=== PATIENT | female | born 1970 | race Caucasian/White ===

== ENCOUNTER 2019-07-24 12:30 | Emergency (ER) | payer OTHER ==
[2019-07-24] MEDS ORDERED: SODIUM CHLORIDE 0.9% 1,000 ML IV STA (13:09)
[2019-07-24] MEDS ORDERED: MORPHINE SULFATE 4 MG/ML SYRINGE IV STA (13:10)
[2019-07-24 13:34] LABS: Basophils # (A) 0.1 k/uL (0-0.2); Basophils % (A) 1 %; Eosinophils # (A) 0.1 k/uL (0-0.7); Eosinophils % (A) 1 %; HCT 41.9 % (34.0-46.0); Lymphocytes # (A) 2.8 k/uL (1.0-4.8); Lymphocytes % (A) 36 %; MCH 30.1 pg (25.0-35.0); MCHC 33.3 g/dL (31.0-37.0); MCV 90.3 fL (80.0-100.0); Monocytes # (A) 0.3 k/uL (0-1.0); Monocytes % (A) 4 %; Neutrophils # (A) 4.3 k/uL (1.3-7.7); Neutrophils % (A) 57 %; Platelet Count 346 k/uL (150-450); RBC 4.64 m/uL (3.80-5.40); RDW 13.1 % (11.5-15.5); WBC 7.6 k/uL (3.8-10.6)
[2019-07-24] MEDS ORDERED: MECLIZINE 12.5 MG TAB PO STA (13:39)
--- NOTE | 2019-07-24 13:39 | CT ---
EXAMINATION TYPE: CT brain osiel matos DATE OF EXAM: 07/24/2019 COMPARISON: NONE HISTORY: Dizziness fall, head and neck pain CT DLP: 1417.9 mGycm. Automated Exposure Control for Dose Reduction was Utilized. TECHNIQUE: CT scan of the head and cervical spine are performed without contrast. FINDINGS: There is no acute intracranial hemorrhage, mass effect, or midline shift identified. The ventricles and sulci are within normal limits in size. 1.0 cm sphenoid mucosal retention cyst is se en. The globes are intact and the remaining visualized sinuses are clear. Cervical spine is visualized in its entirety from C1 through upper thoracic levels and demonstrates s atisfactory alignment without evidence of acute fracture or dislocation. Prevertebral soft tissue ap pears within normal limits. There is a lucent lesion of C7 measuring 9 x 8 mm. This has questionable features of a hemangioma on sagittal image 27 (line sign). Multiple other lucent areas appear as prom inent veins in other cervical vertebral bodies. The C1-C2 articulation is unremarkable. There is rev ersal of the usual cervical lordosis. Congenital posterior elements of C1. Patchy groundglass opaciti es in the lung apices may relate to atelectasis or fluid overload. Minimal multilevel degenerative di sc disease. IMPRESSION: 1. There is no acute fracture or dislocation evident in the cervical spine. 2. No acute intracranial hemorrhage, mass effect, or midline shift is seen. 3. Lucent lesion of C7 has possible features of a hemangioma. MRI of the cervical spine could ensure no abnormal bone marrow replacing process. 4. Minimal multilevel degenerative disc disease of the cervical spine and reversal usual cervical amari dosis that may relate to muscular strain/spasm or patient positioning.
[2019-07-24 13:48] VITALS: RESP 18; TEMP 98.6
[2019-07-24 13:50] LABS: ALT 18 U/L (9-52); AST 21 U/L (14-36); African American GFR (CKD) >90 (>60 ml/min/1.73 sqM); Albumin 4.4 g/dL (3.5-5.0); Alkaline Phosphatase 74 U/L (38-126); Anion Gap 10 mmol/L; Blood Urea Nitrogen 22 mg/dL (7-17); Calcium 9.5 mg/dL (8.4-10.2); Carbon Dioxide 25 mmol/L (22-30); Chloride 108 mmol/L (98-107); Glucose 102 mg/dL (74-99); Magnesium 1.9 mg/dL (1.6-2.3); Non-African American GFR(CKD) >90 (>60 ml/min/1.73 sqM); Potassium 4.5 mmol/L (3.5-5.1); Sodium 143 mmol/L (137-145); Total Bilirubin 0.3 mg/dL (0.2-1.3); Total Protein 7.4 g/dL (6.3-8.2)
[2019-07-24 13:55] LABS: INR 0.9 (<1.2); Partial Thromboplastin Time 24.5 sec (22.0-30.0); Prothrombin Time 9.5 sec (9.0-12.0)
[2019-07-24 13:58] LABS: D-Dimer 0.75 mg/L FEU (<0.60)
[2019-07-24 14:46] VITALS: BP 117/80; PULSE 77
[2019-07-24 14:52] LABS: Appearance,Urine Clear (Clear); Bilirubin,Urine Negative (Negative); Blood,Urine Negative (Negative); Color,Urine Light Yellow; Glucose,Urine (UA) Negative (Negative); Ketones,Urine Negative (Negative); Leukocyte Esterase,Urine Small (Negative); Mucus,Urine Rare /hpf; Nitrite,Urine Negative (Negative); Protein,Urine Negative (Negative); RBC,Urine 2 /hpf (0-5); Squamous Epithelial Cell,Urine <1 /hpf (0-4); Urobilinogen,Urine <2.0 mg/dL (<2.0); WBC,Urine <1 /hpf (0-5)
[2019-07-24 14:56] LABS: Specific Gravity,Urine 1.047 (1.001-1.035)
--- NOTE | 2019-07-24 15:09 | ED ---
General Adult HPI - General Chief complaint: Dizziness Stated complaint: dizziness Time Seen by Provider: 07/24/19 12:51 Source: RN/MD, RN notes reviewed, old records reviewed Mode of arrival: EMS Limitations: no limitations - History of Present Illness Initial comments: 48-year-old female patient presents to ED for multiple complaints. Patient reports that she has history of multilevel lumbar fusion for which she reportedly has some hardware loosening is supposed to have a revision surgery in approximately 8 days. Today she is due to have imaging done including lumbar spine MRI. Patient also reports that she is supposed to have a MRI done of her abdomen due to a reported history of a 4 cm aortic aneurysm. Patient reports that since Tuesday she has had dizziness, feeling as if the room is spinning about her. Also some waxing and waning left parasternal chest pressure. Denies a chance of being . Denies any abdominal pain. Denies any other complaints. Systemic: Pt denies fatigue, fever/chills, rash. Pt denies weakness, night sw eats, weight loss. Neuro: Pt denies headache, visual disturbances, syncope or pre-syncope. HEENT: Pt denies ocular discharge or irritation, otalgia, rhinorrhea, pharyngitis or notable lymphadenopathy. Cardiopulmonary: Pt denies SOB, heart palpitations, dyspnea on exertion. Abdominal/GI: Pt denies abdominal pain, n/v/d. : Pt denies dysuria, burning w/ urination, frequency/urgency. Denies new onset urinary or bowel incontinence. MSK: Pt denies myalgia, loss of strength or function in extremities. Neuro: Pt denies new onset weakness, paresthesias. - Related Data Home Medications Medication Instructions Recorded Confirmed Cyclobenzaprine [Flexeril] 10 mg PO TID PRN 01/19/16 07/24/19 Ergocalciferol [Vitamin D2] 50,000 unit PO Q7D 02/25/16 07/24/19 Multivitamins, Thera [Multivitamin] 1 tab PO DAILY 02/25/16 07/24/19 Gabapentin [Neurontin] 100 - 300 mg PO Q8H 07/24/19 07/24/19 Promethazine [Phenergan] 25 mg PO TID PRN 07/24/19 07/24/19 Thyroid,Pork [[place] Thyroid] 90 mg PO DAILY 07/24/19 07/24/19 Venlafaxine HCl ER [Effexor Xr] 150 mg PO DAILY 07/24/19 07/24/19 oxyCODONE-APAP 10-325MG [Percocet 1 tab PO TID PRN 07/24/19 07/24/19 10-325 mg] Previous Rx's Medication Instructions Recorded Azithromycin [Zithromax Z-pack] 0 mg PO DIRECTED #6 tab 07/24/19 Meclizine [Antivert] 25 mg PO Q6H PRN #20 tab 07/24/19 Allergies Allergy/AdvReac Type Severity Reaction Status Date / Time Penicillins Allergy Rash/Hives Verified 07/24/19 14:18 steroid Allergy Rash/Hives Uncoded 07/24/19 14:18 Review of Systems ROS Statement: Those systems with pertinent positive or pertinent negative responses have been documented in the HPI. ROS Other: All systems not noted in ROS Statement are negative. Past Medical History Past Medical History: Thyroid Disorder Additional Past Medical History / Comment(s): migraines, hx ulcer, kidney stones History of Any Multi-Drug Resistant Organisms: None Reported Past Surgical History: Back Surgery, Cholecystectomy Additional Past Surgical History / Comment(s): spinal fusion- lumbar , PAIN [facility] INJECTIONS Past Anesthesia/Blood Transfusion Reactions: Motion Sickness Past Psychological History: Anxiety Smoking Status: Former smoker - Past Family History Brother(s) Family Medical History: Cancer General Exam - General Exam Comments Initial Comments: Constitutional: NAD, AOX3, Pt has pleasant affect. HEENT: NC/AT, trachea midline, neck supple, no lymphadenopathy. Posterior pharynx non erythematous, without exudates. External ears appear normal, without discharge. Mucous membranes moist. Eyes PERRLA, EOM intact. There is no scleral icterus. No pallor noted. Cardiopulmonary: RRR, no murmurs, rubs or gallops, no JVD noted. Lungs CTAB in anterior and posterior izquierdo. No peripheral edema. Abdominal exam: Abdomen soft and non-distended. Abdomen non-tender to palpation in all 4 quadrants. Bowel sounds active in LLQ. No hepatosplenomegaly. No ecchymosis Neuro: CN II-XII intact. No nuchal rigidity. No raccon eyes, no raymond sign, no hemotympanum. No cervical spinal tenderness. MSK: No posterior calf tenderness bilaterally, homans sign negative bilaterally. Posterior tibialis and radial pulse +2 bilaterally. Sensation intact in upper and lower extremities. Full active ROM in upper and lower extremities, 5/5 stregnth. Limitations: no limitations Course Vital Signs 07/24/19 07/24/19 07/24/19 12:43 13:42 14:45 Temperature 98.9 F 98.6 F Pulse Rate 90 74 77 Respiratory 20 18 18 Rate Blood Pressure 150/118 138/101 117/80 O2 Sat by Pulse 95 98 98 Oximetry Medical Decision Making - Medical Decision Making 48-year-old female patient presents to ED for multiple complaints. Patient reports that she has history of multilevel lumbar fusion for which she reportedly has some hardware loosening is supposed to have a revision surgery in approximately 8 days. Today she is due to have imaging done including lumbar spine MRI. Patient also reports that she is supposed to have a MRI done of her abdomen due to a reported history of a 4 cm aortic aneurysm. Patient reports that since Tuesday she has had dizziness, feeling as if the room is spinning about her. Also some waxing and waning left parasternal chest pressure. Denies a chance of being . Denies any abdominal pain. Denies any other complaints. Patient will signs stable, afebrile. Physical exam displayed normal neurologic exam. No acute pathology. Laboratory investigations revealed mildly elevated d-dimer. Troponin negative 2. EKG nonischemic. CT brain and C-spine did not display acute process. Possible hemangioma C7. Discussed this with the patient who verbalized understanding. Chest aorta CT did not display any PE or aortic dissection. Possible right lower lobe developing pneumonia. No evidence of aortic aneurysm. Patient denies any coughing or fever. Patient will still be treated with azithromycin. Patient feels much improved with antivert. Patient will be discharged to follow-up with primary care provider and will return to ER physician worsens. Case discussed with Dr. Morataya. - Lab Data Result diagrams: 07/24/19 13:07 07/24/19 13:07 Lab Results 07/24/19 07/24/19 07/24/19 Range/Units 13:07 13:07 13:07 WBC 7.6 (3.8-10.6) k/uL RBC 4.64 (3.80-5.40) m/uL Hgb 14.0 (11.4-16.0) gm/dL Hct 41.9 (34.0-46.0) % MCV 90.3 (80.0-100.0) fL MCH 30.1 (25.0-35.0) pg MCHC 33.3 (31.0-37.0) g/dL RDW 13.1 (11.5-15.5) % Plt Count 346 (150-450) k/uL Neutrophils % 57 % Lymphocytes % 36 % Monocytes % 4 % Eosinophils % 1 % Basophils % 1 % Neutrophils # 4.3 (1.3-7.7) k/uL Lymphocytes # 2.8 (1.0-4.8) k/uL Monocytes # 0.3 (0-1.0) k/uL Eosinophils # 0.1 (0-0.7) k/uL Basophils # 0.1 (0-0.2) k/uL PT 9.5 (9.0-12.0) sec INR 0.9 (<1.2) APTT 24.5 (22.0-30.0) sec D-Dimer 0.75 H (<0.60) mg/L FEU Sodium 143 (137-145) mmol/L Potassium 4.5 (3.5-5.1) mmol/L Chloride 108 H (98-107) mmol/L Carbon Dioxide 25 (22-30) mmol/L Anion Gap 10 mmol/L BUN 22 H (7-17) mg/dL Creatinine 0.67 (0.52-1.04) mg/dL Est GFR (CKD-EPI)AfAm >90 (>60 ml/min/1.73 sqM) Est GFR (CKD-EPI)NonAf >90 (>60 ml/min/1.73 sqM) Glucose 102 H (74-99) mg/dL Calcium 9.5 (8.4-10.2) mg/dL Magnesium 1.9 (1.6-2.3) mg/dL Total Bilirubin 0.3 (0.2-1.3) mg/dL AST 21 (14-36) U/L ALT 18 (9-52) U/L Alkaline Phosphatase 74 (38-126) U/L Troponin I (0.000-0.034) ng/mL Total Protein 7.4 (6.3-8.2) g/dL Albumin 4.4 (3.5-5.0) g/dL Lipase 41 (23-300) U/L Urine Color Urine Appearance (Clear) Urine pH (5.0-8.0) Ur Specific [place] (1.001-1.035) Urine Protein (Negative) Urine Glucose (UA) (Negative) Urine Ketones (Negative) Urine Blood (Negative) Urine Nitrite (Negative) Urine Bilirubin (Negative) Urine Urobilinogen (<2.0) mg/dL Ur Leukocyte Esterase (Negative) Urine RBC (0-5) /hpf Urine WBC (0-5) /hpf Ur Squamous Epith Cells (0-4) /hpf Urine Mucus (None) /hpf Urine HCG, Qual (Not Detectd) 07/24/19 07/24/19 07/24/19 Range/Units 13:07 14:41 14:41 WBC (3.8-10.6) k/uL RBC (3.80-5.40) m/uL Hgb (11.4-16.0) gm/dL Hct (34.0-46.0) % MCV (80.0-100.0) fL MCH (25.0-35.0) pg MCHC (31.0-37.0) g/dL RDW (11.5-15.5) % Plt Count (150-450) k/uL Neutrophils % % Lymphocytes % % Monocytes % % Eosinophils % % Basophils % % Neutrophils # (1.3-7.7) k/uL Lymphocytes # (1.0-4.8) k/uL Monocytes # (0-1.0) k/uL Eosinophils # (0-0.7) k/uL Basophils # (0-0.2) k/uL PT (9.0-12.0) sec INR (<1.2) APTT (22.0-30.0) sec D-Dimer (<0.60) mg/L FEU Sodium (137-145) mmol/L Potassium (3.5-5.1) mmol/L Chloride (98-107) mmol/L Carbon Dioxide (22-30) mmol/L Anion Gap mmol/L BUN (7-17) mg/dL Creatinine (0.52-1.04) mg/dL Est GFR (CKD-EPI)AfAm (>60 ml/min/1.73 sqM) Est GFR (CKD-EPI)NonAf (>60 ml/min/1.73 sqM) Glucose (74-99) mg/dL Calcium (8.4-10.2) mg/dL Magnesium (1.6-2.3) mg/dL Total Bilirubin (0.2-1.3) mg/dL AST (14-36) U/L ALT (9-52) U/L Alkaline Phosphatase (38-126) U/L Troponin I <0.012 (0.000-0.034) ng/mL Total Protein (6.3-8.2) g/dL Albumin (3.5-5.0) g/dL Lipase (23-300) U/L Urine Color Light Yellow Urine Appearance Clear (Clear) Urine pH 7.0 (5.0-8.0) Ur Specific [place] 1.047 H (1.001-1.035) Urine Protein Negative (Negative) Urine Glucose (UA) Negative (Negative) Urine Ketones Negative (Negative) Urine Blood Negative (Negative) Urine Nitrite Negative (Negative) Urine Bilirubin Negative (Negative) Urine Urobilinogen <2.0 (<2.0) mg/dL Ur Leukocyte Esterase Small H (Negative) Urine RBC 2 (0-5) /hpf Urine WBC <1 (0-5) /hpf Ur Squamous Epith Cells <1 (0-4) /hpf Urine Mucus Rare H (None) /hpf Urine HCG, Qual Not Detected (Not Detectd) 07/24/19 Range/Units 15:48 WBC (3.8-10.6) k/uL RBC (3.80-5.40) m/uL Hgb (11.4-16.0) gm/dL Hct (34.0-46.0) % MCV (80.0-100.0) fL MCH (25.0-35.0) pg MCHC (31.0-37.0) g/dL RDW (11.5-15.5) % Plt Count (150-450) k/uL Neutrophils % % Lymphocytes % % Monocytes % % Eosinophils % % Basophils % % Neutrophils # (1.3-7.7) k/uL Lymphocytes # (1.0-4.8) k/uL Monocytes # (0-1.0) k/uL Eosinophils # (0-0.7) k/uL Basophils # (0-0.2) k/uL PT (9.0-12.0) sec INR (<1.2) APTT (22.0-30.0) sec D-Dimer (<0.60) mg/L FEU Sodium (137-145) mmol/L Potassium (3.5-5.1) mmol/L Chloride (98-107) mmol/L Carbon Dioxide (22-30) mmol/L Anion Gap mmol/L BUN (7-17) mg/dL Creatinine (0.52-1.04) mg/dL Est GFR (CKD-EPI)AfAm (>60 ml/min/1.73 sqM) Est GFR (CKD-EPI)NonAf (>60 ml/min/1.73 sqM) Glucose (74-99) mg/dL Calcium (8.4-10.2) mg/dL Magnesium (1.6-2.3) mg/dL Total Bilirubin (0.2-1.3) mg/dL AST (14-36) U/L ALT (9-52) U/L Alkaline Phosphatase (38-126) U/L Troponin I <0.012 (0.000-0.034) ng/mL Total Protein (6.3-8.2) g/dL Albumin (3.5-5.0) g/dL Lipase (23-300) U/L Urine Color Urine Appearance (Clear) Urine pH (5.0-8.0) Ur Specific [place] (1.001-1.035) Urine Protein (Negative) Urine Glucose (UA) (Negative) Urine Ketones (Negative) Urine Blood (Negative) Urine Nitrite (Negative) Urine Bilirubin (Negative) Urine Urobilinogen (<2.0) mg/dL Ur Leukocyte Esterase (Negative) Urine RBC (0-5) /hpf Urine WBC (0-5) /hpf Ur Squamous Epith Cells (0-4) /hpf Urine Mucus (None) /hpf Urine HCG, Qual (Not Detectd) Disposition Clinical Impression: Vertigo, Atypical chest pain, Pneumonia Disposition: HOME SELF-CARE Condition: Stable Instructions (If sedation given, give patient instructions): Chest Pain (ED), Vertigo (ED), Community Acquired Pneumonia (ED) Additional Instructions: Follow-up with primary care provider tomorrow. Take antibiotics as directed. Use antivert only as needed for vertigo-like symptoms. Return to ER if condition worsens in any way. Prescriptions: Meclizine [Antivert] 25 mg PO Q6H PRN #20 tab PRN Reason: Dizziness Azithromycin [Zithromax Z-pack] 0 mg PO DIRECTED #6 tab Is patient prescribed a controlled substance at d/c from ED?: No Referrals: Michelet Valenzuela DO [Primary Care Provider] - 1-2 days
--- NOTE | 2019-07-24 15:18 | CT ---
EXAMINATION TYPE: CT chest angio for PE, CT angio thor/abd pel aorta DATE OF EXAM: 07/24/2019 COMPARISON: CT abdomen pelvis dated 01/19/2016 HISTORY: Elevated d-dimer with history of aortic aneurysm and chest pain. CT DLP: 2540.7 Automated Exposure Control for Dose Reduction was Utilized. CONTRAST: CTA scan of the thorax is performed with IV Contrast, patient injected with 150 mL of Isovue 370. MIP Images are created on CT scanner and reviewed. FINDINGS: LUNGS: There are scattered groundglass opacities with more focal right basilar consolidation that mónica ears somewhat linear.. There is no pleural effusion or pneumothorax seen. The tracheobronchial renetta e is patent. MEDIASTINUM: There is satisfactory enhancement of the pulmonary artery and its branches, there is no CT evidence for pulmonary embolism. There are no greater than 1 cm hilar or mediastinal lymph nodes. Heart is very mildly enlarged. No pericardial effusion coronary artery calcifications. OTHER: Mild multilevel degenerative change of the spine. The gallbladder is surgically absent. Precontrast imaging demonstrates no evidence of intramural hematoma in the abdominal or thoracic aort a. Aortic root is upper limits of normal in size measuring 3.9 cm. Ascending thoracic aorta is also u pper limits of normal size measuring 3.8 cm. Descending thoracic aorta is within normal limits measur ing 2.3 cm. No aneurysmal dilatation of the abdominal aorta or common iliac arteries. Postsurgical changes are seen of L4-S1. Mild degenerative changes of the remainder of the spine. Nalini ographic phase limits evaluation of the abdominal viscera. Hepatic steatosis is seen. Spleen, adrenal glands, pancreas, and kidneys are unremarkable other than a too small to accurately characterize lef t lower pole renal lesion. No dilated large or small bowel. Small periumbilical hernia. No ascites or pneumoperitoneum. Urinary bladder is unremarkable. No greater than 1 cm short axis lymph node in the abdomen or pelvis. IMPRESSION: 1. No evidence of pulmonary embolism nor aortic dissection. 2. Right lower lobe airspace disease may represent early developing pneumonia. 3. No evidence of thoracic or abdominal aortic aneurysm. Upper limits of normal size of the aortic ro ot and ascending thoracic aorta.
[2019-07-24] MEDS ORDERED: AZITHROMYCIN 500 MG TAB PO STA (16:45)
[2019-07-24] MEDS ORDERED: cefTRIAXone IN SWFI 1,000 MG/10 ML SYRINGE IVP STA (16:45)
== END 2019-07-24 16:58 | disposition home or self-care (01) ==
LOC: EC 12:30
DX: R42 Dizziness and giddiness (principal); R07.89 Other chest pain; J18.9 Pneumonia, unspecified organism; R79.89 Other specified abnormal findings of blood chemistry; E07.9 Disorder of thyroid, unspecified; F41.9 Anxiety disorder, unspecified; Z79.890 Hormone replacement therapy; Z79.899 Other long term (current) drug therapy; Z98.1 Arthrodesis status; Z86.79 Personal history of other diseases of the circulatory system; Z87.891 Personal history of nicotine dependence; Z88.0 Allergy status to penicillin; Z88.8 Allergy status to other drugs, medicaments and biological substances
CPT/HCPCS: 36415; 93005; 85379; 80053; 83690; 83735; 84484; 85025; 85610; 85730; 81001; 81025; 72125; 70450; 71275; 74174; 99285; 96374; 96361; J2270; Q9967